=== PATIENT | male | born 1970 | race Two or more races ===

== ENCOUNTER 2021-11-24 10:28 | Day surgery (SDC) | payer SELFPAY ==
[~2021-11-24] VITALS: Ht 171.4 cm; Wt 107.0 kg
[~2021-11-24 10:28] MED LIST: HYDROmorphone 2 MG/ML INJ. IVP PRN; IV RINGERS,LACTATED 1000ML 1,000 ML IV SCH; PROCHLORPERAZINE 10 MG/2 ML VIAL. IVP PRN; fentaNYL PF VIAL 100 MCG/2 ML VIAL IVP PRN
[2021-11-24] MEDS ORDERED: GLIP10TA13 PO (11:11)
[2021-11-24] MEDS ORDERED: ATOR20TA58 PO (11:11)
[2021-11-24] MEDS ORDERED: SITA100T PO (11:11)
[2021-11-24] MEDS ORDERED: LISI20TA18 PO (11:11)
[2021-11-24] MEDS ORDERED: METF10007 PO (11:11)
[2021-11-24 11:13] VITALS: BP 130/68
[2021-11-24] MEDS ORDERED: INSULIN LISPRO 100 UNIT/ML 3ML VIAL for OP,RR ONLY. SQ PRN (11:15)
--- NOTE | 2021-11-24 11:55 | PDOC1 ---
History and Physical Date of Admission Date of Admission DATE: 11/24/21 TIME: 11:52 History of Present Illness History of Present Illness The patient is a 51 year old male who was referred for repair of an umbilical hernia. He has noticed the hernia for a few years. He has noticed a few episodes of sharp pain at the umbilicus. He denies changes in bowel or bladder function. Past Medical History Cardiovascular: HTN Endocrine: Diabetes Past Surgical History Past Surgical History Removal of foreign body on his arm Social History Smoke: # pack years ALCOHOL: none Drugs: None Current Medications Current Medications Current Medications Fentanyl Citrate (Fentanyl 2ml Vial) 25 mcg PRN Q5MIN PRN IVP MILD PAIN 1-3; Start 11/24/21 at 06:00; Stop 11/25/21 at 05:59 Fentanyl Citrate (Fentanyl 2ml Vial) 50 mcg PRN Q5MIN PRN IVP MODERATE PAIN 4- 6; Start 11/24/21 at 06:00; Stop 11/25/21 at 05:59 Morphine Sulfate (Morphine Sulfate) 1 mg PRN Q10MIN PRN IVP SEVERE PAIN 7-10; Start 11/24/21 at 06:00; Stop 11/25/21 at 05:59 Ringer's Solution 1,000 ml @ 30 mls/hr Q24H IV Last administered on 11/24/21at 11:18; Start 11/24/21 at 06:00; Stop 11/24/21 at 17:59 Hydromorphone HCl (Dilaudid) 0.5 mg PRN Q10MIN PRN IVP SEVERE PAIN 7-10, 2nd CHOICE; Start 11/24/21 at 06:00; Stop 11/25/21 at 05:59 Prochlorperazine Edisylate (Compazine) 5 mg PACU PRN PRN IVP NAUSEA, MRX1; Start 11/24/21 at 06:00; Stop 11/25/21 at 05:59 Cefazolin Sodium/ Dextrose 50 ml @ 100 mls/hr 1X PREOP PRN IV PRIOR TO P ROCEDURE; Start 11/24/21 at 06:00; Stop 11/24/21 at 18:00 Insulin Human Lispro (HumaLOG VIAL for OP,RR ONLY) 0-10 units PRN Q1HR PRN SQ PER PROTOCOL; Start 11/24/21 at 11:15; Stop 11/25/21 at 11:14 Active Scripts Active Reported Atorvastatin Calcium 20 Mg Tablet 1 Tab PO DAILY Metformin Hcl 1,000 Mg Tablet 1,000 Mg PO BIDWMEALS Glipizide 10 Mg Tablet 1 Tab PO BID Lisinopril 20 Mg Tablet 1 Tab PO DAILY Januvia (Sitagliptin Phosphate) 100 Mg Tablet 300 Mg PO DAILY Allergies Allergies: Coded Allergies: No Known Drug Allergies (Unverified , 11/24/21) ROS General: No: Chills, Night Sweats, Fatigue, Malaise, Appetite, Other PSYCHOLOGICAL ROS: No: Anxiety, Behavioral Disorder, Concentration difficultie, Decreased libido, Depression, Disorientation, Hallucinations, Hostility, Irritablity, Memory difficulties, Mood Swings, Obsessive thoughts, Physical abuse, Sexual abuse, Sleep disturbances, Suicidal ideation, Other Eyes: No Blurry vision, No Decreased vision, No Double vision, No Dry eyes, No Excessive tearing, No Eye Pain, No Itchy Eyes, No Loss of vision, No Photophobia, No Scotomata, No Uses contacts, No Uses glasses, No Other HEENT: No: Heacaches, Visual Changes, Hearing change, Nasal congestion, Nasal discharge, Oral lesions, Sinus pain, Sore Throat, Epistaxis, Sneezing, Snoring, Tinnitus, Vertigo, Vocal changes, Other ALLERGY AND IMMUNOLOGY: No: Hives, Insect Bite Sensitivity, Itchy/Watery Eyes, Nasal Congestion, Post Nasal Drip, Seasonal Allergies, Other Hematological and Lymphatic: No: Bleeding Problems, Blood Clots, Blood Transfusions, Brusing, Night Sweats, Pallor, Swollen Lymph Nodes, Other ENDOCRINE: No: Breast Changes, Galactorrhea, Hair Pattern Changes, Hot Flashes, Malaise/lethargy, Mood Swings, Palpitations, Polydipsia/polyuria, Skin Changes, Temperature Intolerance, Unexpected Weight Changes, Other Respiratory: No: Cough, Hemoptysis, Orthopnea, Pleuritic Pain, Shortness of breath, SOB with excertion, Sputum Changes, Stridor, Tachypnea, Wheezing, Other Cardiovascular: No Chest Pain, No Palpitations, No Orthopnea, No Paroxysmal Noc. Dyspnea, No Edema, No Lt Headedness, No Other Gastrointestinal: No Nausea, No Vomiting, No Abdominal Pain, No Diarrhea, No Constipation, No Melena, No Hematochezia, No Other Genitourinary: No Dysuria, No Frequency, No Incontinence, No Hematuria, No Retention, No Discharge, No Urgency, No Pain, No Flank Pain, No Other, No , No , No , No , No , No , No Musculoskeletal: No Gait Disturbance, No Joint Pain, No Joint Stiffness, No Joint Swelling, No Muscle Pain, No Muscular Weakness, No Pain In:, No Swelling In:, No Other Neurological: No Behavorial Changes, No Bowel/Bladder ControlChng, No Confusion, No Dizziness, No Gait Disturbance, No Headaches, No Impaired Coord/balance, No Memory Loss, No Numbness/Tingling, No Seizures, No Speech Problems, No Tremors, No Visual Changes, No Weakness, No Other Skin: No Dry Skin, No Eczema, No Hair Changes, No Lumps, No Mole Changes, No Mottling, No Nail Changes, No Pruritus, No Rash, No Skin Lesion Changes, No Other, No Acne Physical Exam General: Alert, Oriented X3, Cooperative HEENT: Atraumatic Lungs: Clear to auscultation Abdomen: Soft (obese, reducible umbilical hernia present) Rectal Exam: not examined Extremities: No clubbing, No cyanosis Skin: No rashes, No breakdown Neuro: Normal speech Psych/Mental Status: Mental status NL Vitals Vitals Vital Signs Date Time Temp Pulse Resp B/P (MAP) Pulse Ox O2 Delivery O2 Flow Rate FiO2 11/24/21 11:15 97.4 73 20 130/68 98 Room Air 97.4 Labs Labs Laboratory Tests Test 11/24/21 11:16 Glucose (Fingerstick) 94 mg/dL (70-99) Laboratory Tests Test 11/24/21 11:16 Glucose (Fingerstick) 94 mg/dL (70-99) VTE Prophylaxis Ordered VTE Prophylaxis Devices: Yes VTE Pharmacological Prophylaxi: No Assessment/Plan Assessment/Plan Plan for umbilical hernia repair. The details and risks of surgery were discussed with the patient. He understands and would like to proceed. Justifications for Admission Other Justification TEA JACOBSON MD Nov 24, 2021 11:55
[2021-11-24] MEDS ORDERED: BUPIVACAINE-EPI 0.5% 30 ML VIAL KIT. INJ ONE (12:20)
[2021-11-24] MEDS ORDERED: SUGAMMADEX SODIUM 200 MG/2 ML VIAL. IVP ONE (12:30)
--- NOTE | 2021-11-24 13:02 | PDOC4 ---
Operative Note Operative Note Operative Note: Preoperative Diagnosis: Umbilical hernia Postoperative Diagnosis: Same Procedure: Umbilical hernia repair with mesh Surgeon: Julio Grocery Clerk: Everett Lomeli MS 4 Anesthesia: General EBL: 10 mL Specimen: None Drains: None Complications: None Indication: The patient is a 51-year-old male who is referred with umbilical hernia. He was offered surgical repair. The risks of surgery were discussed which include bleeding, infection, recurrence, pain, anesthetic risk, potential need for additional surgery or procedure. He understands and would like to proceed. Description: The patient was taken to the operating room and placed supine on the operating table. General anesthesia was performed. The abdomen was prepped with ChloraPrep and draped with sterile towels, sheets, and an Ioban. A curved infraumbilical incision was made with a scalpel. Cautery dissection was carried down to the fascia. The umbilical tissue was elevated off the fascia exposing the hernia defect. A preperitoneal plane was developed circumferentially around the defect with blunt dissection. A small Ventralex ST mesh was placed in the preperitoneal plane. The mesh was sutured into position to the fascia using 0 Prolene in horizontal mattress fashion. The fascial edges were closed over the mesh with 0 Prolene. The umbilicus was secured back to the fascia with 0 Vicryl. The subcutaneous tissue was closed with 3-0 Vicryl. The skin was approximated with 4-0 Monocryl and infiltrated with half percent Marcaine with epinephrine. Steri-Strips and a sterile dressing were applied. The patient tolerated the procedure well and was sent to the recovery room in stable condition. At the end of the case all counts were correct. TEA JACOBSON MD Nov 24, 2021 13:02
[2021-11-24] MEDS ORDERED: OXYC-325 PO (13:04)
--- NOTE | 2021-11-24 13:06 | DISCH ---
DISCHARGE INSTRUCTIONS Condition on Discharge Condition on Discharge: Stable Activity After Discharge Activity Instructions for Disc: Other, see below (No lifting over 20 lbs or strenuous activity X 4 weeks) Driving Instructions after Dis: Other, see below (No driving while taking pain meds) Diet after Discharge Diet after Discharge: Regular Wound Incision Care Wound/Incision Care: Other, see below (keep dressing clean and dry X 72 hours, may then remove and shower, steristrips will fall off on their own; keep abdominal binder on while awake) Follow-Up Follow up with: Dr Jacobson in office in 2 weeks, call for appt [phone] TEA JACOBSON MD Nov 24, 2021 13:06
[2021-11-24] MEDS: fentaNYL PF VIAL 100 MCG/2 ML VIAL IVP PRN ×2 (13:30→13:43)
[2021-11-24] MEDS ORDERED: oxyCODONE/APAP 5/325 1 TAB TABLET PO ONE (13:45)
[2021-11-24] MEDS: MORPHINE SULFATE 2 MG/ML INJ. IVP PRN ×2 (13:55→14:12)
[2021-11-24 14:02] VITALS: BP 152/77
== END 2021-11-24 14:50 | disposition home or self-care (01) ==
LOC: SURG 10:28 → EDBD 10:28 → SURG 14:50
PROVIDERS: ATTEND Surgery
DX: K42.9 Umbilical hernia without obstruction or gangrene (principal); I10 Essential (primary) hypertension; E11.9 Type 2 diabetes mellitus without complications; Z79.899 Other long term (current) drug therapy; E78.00 Pure hypercholesterolemia, unspecified; Z79.82 Long term (current) use of aspirin; Z79.84 Long term (current) use of oral hypoglycemic drugs; Z98.890 Other specified postprocedural states; Z87.891 Personal history of nicotine dependence; Z72.89 Other problems related to lifestyle
CPT/HCPCS: 49585; 82962; A4364; A4930; A6402; C1781; J3490; A4452